=== PATIENT | female | born 1975 | race Caucasian/White ===

== ENCOUNTER → 2017-06-13 | Outpatient (CLI) | payer BC ==
[2006-03-11 08:15] VITALS: TEMP 97.8
[~2017-06-13] MED LIST: PHENERGAN25 MG RC; PRILOSEC; PRILOSEC 10MG10 MG PO; PRILOSEC10 MG
== END ==
LOC: SUN.DIA 12:51
DX: R73.03 Prediabetes (principal); Z68.37 Body mass index [BMI] 37.0-37.9, adult; Z71.3 Dietary counseling and surveillance
CPT/HCPCS: G0108

== ENCOUNTER → 2017-06-28 | Outpatient (CLI) | payer BC ==
[2006-03-11 08:15] VITALS: TEMP 97.8
== END ==
LOC: SUN.DIA 08:04
DX: R73.03 Prediabetes (principal); E03.9 Hypothyroidism, unspecified; E66.9 Obesity, unspecified; Z68.37 Body mass index [BMI] 37.0-37.9, adult; Z71.3 Dietary counseling and surveillance
CPT/HCPCS: G0108

== ENCOUNTER → 2017-08-28 | Outpatient (CLI) | payer BC ==
[2006-03-11 08:15] VITALS: TEMP 97.8
== END ==
LOC: SUN.DIA 08:08
DX: R73.03 Prediabetes (principal); E03.9 Hypothyroidism, unspecified; E66.9 Obesity, unspecified; Z68.36 Body mass index [BMI] 36.0-36.9, adult; Z71.3 Dietary counseling and surveillance
CPT/HCPCS: G0108

== ENCOUNTER → 2018-01-01 | Outpatient (CLI) | payer BC ==
[2006-03-11 08:15] VITALS: TEMP 97.8
== END ==
LOC: SUN.DIA 14:35
DX: R73.03 Prediabetes (principal); E03.9 Hypothyroidism, unspecified; E66.9 Obesity, unspecified
CPT/HCPCS: G0108

== ENCOUNTER → 2018-07-09 | Outpatient (CLI) | payer BC ==
[2006-03-11 08:15] VITALS: TEMP 97.8
== END ==
LOC: COL.RAD 14:10
DX: M25.552 Pain in left hip (principal)
CPT/HCPCS: A9585; J3301; Q9967

== ENCOUNTER → 2019-01-28 | Outpatient (CLI) | payer BC ==
[2006-03-11 08:15] VITALS: TEMP 97.8
== END ==
LOC: COL.VAS 07:44
DX: Z01.810 Encounter for preprocedural cardiovascular examination (principal); I51.7 Cardiomegaly; I87.2 Venous insufficiency (chronic) (peripheral); Z86.718 Personal history of other venous thrombosis and embolism

== ENCOUNTER → 2019-06-20 | Outpatient (CLI) | payer BC ==
[2006-03-11 08:15] VITALS: TEMP 97.8
== END ==
LOC: MC.RAD 13:45
DX: Z12.31 Encounter for screening mammogram for malignant neoplasm of breast (principal)

== ENCOUNTER → 2023-06-01 | Outpatient (CLI) | payer BC ==
[2006-03-11 08:15] VITALS: TEMP 97.8
== END ==
LOC: MC.RAD 06:58
DX: N60.02 Solitary cyst of left breast (principal)